=== PATIENT | male | born 1980 | race Caucasian/White ===

== ENCOUNTER 2017-11-19 08:00 | Emergency (ER) | payer MEDICARE, MEDICAID ==
[~2017-11-19] VITALS: Ht 175.3 cm; Wt 72.6 kg
[2017-11-19] MEDS ORDERED: LAMICTAL150 MG PO (08:14)
[2017-11-19] MEDS ORDERED: PRENATA CHEWAB1 EACH PO (08:14)
[2017-11-19] MEDS ORDERED: RISPERDAL 1 MG T1 MG PO (08:14)
[2017-11-19] MEDS ORDERED: OYST-CAL-500500 MG PO (08:15)
[2017-11-19] MEDS ORDERED: PAIN RELIEVER500 M3 PO (08:15)
[2017-11-19] MEDS ORDERED: IBUPROFEN 600600 M1 PO (08:15)
[2017-11-19 08:23] LABS: URINE BILIRUBIN NEGATIVE (Negative); URINE BLOOD NEGATIVE (Negative); URINE CLARITY CLEAR; URINE COLOR YELLOW; URINE GLUCOSE-RANDOM NEGATIVE (Negative); URINE KETONES NEGATIVE (Negative); URINE LEUKOCYTES-REFLEX NEGATIVE (Negative); URINE NITRITE-REFLEX NEGATIVE (Negative); URINE PROTEIN NEGATIVE (Negative); URINE UROBILINOGEN 0.2 E.U./dl (0.2-1.0)
[2017-11-19 08:26] LABS: ABSOLUTE EOSINOPHILS 0.2 thou/uL (0.0-0.7); ABSOLUTE LYMPHOCYTES 1.4 thou/uL (0.8-5.3); ABSOLUTE MONOCYTES 0.7 thou/uL (0.0-1.2); BASOPHILS 0.5 %; EOSINOPHILS 3.2 %; HEMATOCRIT 49.7 % (42.0-52.0); HEMOGLOBIN 16.9 gm/dL (14.0-18.0); LYMPHOCYTES 22.5 %; MCH 30.3 pg (26.0-34.0); MCHC 34.1 g/dL (28.0-37.0); NUCLEATED RBCS 0 /100WBC; PLATELET COUNT* 189 thou/uL (150-400); POLYS 62.8 %; RBC 5.59 mil/uL (4.50-6.00); RDW-CV 13.4 % (10.5-14.5); WBC 6.3 thou/uL (4.0-11.0)
[2017-11-19 08:33] LABS: CALCIUM 9.9 mg/dL (8.5-10.1); CREATININE 0.9 mg/dL (0.6-1.3); POTASSIUM 3.9 mmol/L (3.5-5.1)
[2017-11-19 08:39] LABS: ALBUMIN 4.4 g/dL (3.4-5.0); TOTAL BILIRUBIN 0.8 mg/dL (<0.1-1.0); TOTAL PROTEIN 7.7 g/dL (6.4-8.2)
[2017-11-19 09:52] VITALS: BP 124/81
== END 2017-11-19 09:53 | disposition home or self-care (01) ==
LOC: M.ERS 08:00
PROVIDERS: Family Medicine
DX: M54.9 Dorsalgia, unspecified (principal); F39 Unspecified mood [affective] disorder; Z88.0 Allergy status to penicillin